=== PATIENT | female | born 1945 | race Caucasian/White ===

== ENCOUNTER → 2018-01-07 | Day surgery (SDC) | payer MEDICARE, OTHER ==
[2017-12-31 16:00] LABS: BASOPHILS # (AUTO) 0.1 (0.0-0.1); BASOPHILS % 0.6 % (0.0-1.0); EOSINOPHILS # (AUTO) 0.1 (0.0-0.4); EOSINOPHILS % 0.8 % (0.0-6.0); HEMATOCRIT 35.6 % (34.2-44.1); HEMOGLOBIN 11.5 g/dL (12.0-16.0); LYMPHOCYTES # (AUTO) 3.7 (1.0-3.2); LYMPHOCYTES % 35.8 % (18.0-39.1); MEAN CORPUSCULAR HEMOGLOBIN 24.8 pg (28-32); MEAN CORPUSCULAR HGB CONC 32.3 g/dL (31-35); MEAN CORPUSCULAR VOLUME 76.9 fL (81-99); MONOCYTES # (AUTO) 0.8 (0.2-0.8); MONOCYTES % 8.1 % (4.4-11.3); NEUTROPHILS # (AUTO) 5.6 (2.1-6.9); NEUTROPHILS % 54.5 % (38.7-80.0); PLATELET COUNT 266 x10e3/uL (140-360); RED BLOOD COUNT 4.63 x10e6/uL (3.6-5.1); RED CELL DISTRIBUTION WIDTH 15.9 % (11.7-14.4)
[~2018-01-07] MED LIST: ASPIRIN81 MG PO; CLIMARA PRO PA1 EACH TD; COMBIGAN EYE DRO5 ML; CRESTOR5 MG PO; DICYCLOMINE HCL20 MG PO; DORZOLAMIDE HCL10 ML OP; FENTANYL CITRATE/PF 100MCG/2 ML INJ ONE; GLIPIZIDE5 MG PO; JANUMET XR 50-1 EAC1 PO; LATANOPROST2.5 ML OP; LEVEMIR 3M100 UNITS/ INJ; LIDOCAINE HCL 2% LOCAL INJ 5 ML SDV VIAL INJ ONE; LISINOPRIL10 MG PO; LUMIGAN2.5 M1 OP; MACROBID 100 M100 MG PO; MICARDIS80 MG PO; MIDAZOLAM HCL 2 MG/2 ML VIAL ONE; NIFEDIPINE ER30 M1 PO; PANTOPRAZOLE SO40 MG PO; PHENYLEPHRINE HCL 1% 10 MG/ML VIAL ONE; PREMARIN TOP; SERTRALINE HCL25 MG PO; TRESIBA SQ; WELCHOL PO
--- OUTSIDE RECORDS SUMMARY | 2018-01-07 09:09 | XMS REPORT | Summary of Care ---
Author Author SCOTT Kay, RAGHAV Organization Unknown Address Unknown Phone Unavailable Care Team Providers Care Heading Saw Operator Name Role Phone AURELIO NIX M.D. Unavailable Unavailable RAGHAV CHAVEZ M.D. Unavailable Unavailable KIERA NGUYEN MD Unavailable Unavailable Unavailable Unavailable Functional Status Name Dates Details Functional status health issues are not documented Status: Name Dates Details Cognitive status health issues are not documented Status: Problems Name Dates Details Glaucoma (365.9, H40.9) Status: Active Depressive disorder (311, F32.9) Status: Active Hypercalcemia (275.42, E83.52) Status: Active Need for immunization against influenza (V04.81, Z23) Status: Active Abnormal finding on thyroid function test (794.5, R94.6) Status: Active Anemia (285.9, D64.9) Status: Active Uncontrolled diabetes mellitus (250.02, E11.65) Status: Active Flu vaccine need (V04.81, Z23) Status: Active Diabetes mellitus (250.00, E11.9) Status: Active Essential (primary) hypertension (401.9, I10) Status: Active Mixed hyperlipidemia (272.2, E78.2) Status: Active Vitamin D deficiency (268.9, E55.9) Status: Active Cataract (366.9, H26.9) Status: Active Sensorineural hearing loss (SNHL) of both ears (389.18, H90.3) Status: Active 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 * Start : 28-Aug-2012 Active [facility] Vitamin D 2000 UNIT CAPS 2 a day * Quantity: 100 Refills: 6 AURELIO NIX M.D. * Start : 28-Aug-2012 Active CoQ10 200 MG Oral Capsule * Refills: 0 AURELIO NIX M.D. * Start : 28-Aug-2012 Active Fish Oil 1000 MG Oral Capsule take 3 a day * Refills: 0 AURELIO NIX M.D. * Start : 28-Aug-2012 Active Sertraline HCl - 25 MG Oral Tablet * Refills: 0 AURELIO NIX M.D. * Start : 28-Aug-2012 Active Janumet 50-1000 MG Oral Tablet Take 1 tablet by mouth twice a day with meals * Quantity: 180 Refills: 0 AURELIO NIX M.D. * Start : 07-Oct-2017 Active Alcohol Swabs Pad 2 a day * Quantity: 200 Refills: 4 AURELIO NIX M.D. * Start : 23-Feb-2013 Active BD Swab Single Use Regular Pad USE 2 A DAY * Quantity: 200 Refills: 4 AURELIO NIX M.D. * Start : 30-Jan-2014 Active OneTouch Ultra Blue In Vitro Strip Check blood glucose two times daily * Quantity: 200 Refills: 1 BOYD Swartz.AURELIO Vivas * Start : 03-Jun-2017 Active Pantoprazole Sodium 40 MG Oral Tablet Delayed Release * Refills: 0 AURELIO NIX M.D. * Start : 30-Jan-2015 Active NIFEdipine ER Osmotic Release 30 MG Oral Tablet Extended Release 24 Hour TAKE 1 TABLET BY MOUTH DAILY * Quantity: 90 Refills: 0 AURELIO NIX M.D. * Start : 23-Oct-2017 Active Lisinopril 20 MG Oral Tablet Take 1 tablet by mouth daily for blood pressure * Quantity: 90 Refills: 0 AURELIO NIX M.D. * Start : 23-Oct-2017 Active Rosuvastatin Calcium 5 MG Oral Tablet Take 1 tablet by mouth at night * Quantity: 90 Refills: 0 AURELIO NIX M.D. * Start : 23-Oct-2017 Active Aspirin 81 MG Oral Tablet Chewable * Refills: 0 BOYD Rahul, AURELIO * Start : 16-Oct-2016 Active Tresiba FlexTouch 200 UNIT/ML Subcutaneous Solution Pen-injector INJECT SUBCUTANEOUSLY 50 UNITS EVERY EVENING ( MAY INCREASE UP TO 60 UNITS ) * Quantity: 3 Refills: 0 BOYD M.D., AURELIO * Start : 07-Oct-2017 Active 3 x 3 ML Pen Allergies and Adverse Reactions Name Dates Details No Known Drug Allergies (Allergy) Status: Active Past Medical History Name Dates Details History of Abnormal finding on thyroid function test (794.5, R94.6) Status: Resolved Procedures Procedure Dates Details History of Hysterectomy Completed History of Tonsillectomy Completed History of cataract surgery Completed History of bladder surgery Completed Immunization Name Dates Details Fluzone INJ Lot #: [id number] on: 16-Aug-2015 Influenza Lot #: [id number] on: 24-Jul-2016 Fluzone High-Dose 0.5 ML Intramuscular Suspension Prefilled Syringe Lot #: [id number] on: 18-Aug-2017 Family History Name Dates Details Family history of Cerebral Artery Occlusion Comments: Family History Status: Active Family history of Diabetes Mellitus (V18.0) Comments: Family History Status: Active Family history of Coronary Artery Disease (V17.49) Comments: Family History Status: Active Name Dates Details Family history of Diabetes Mellitus (V18.0) Status: Active Name Dates Details Family history of Diabetes Mellitus (V18.0) Status: Active Family history of Coronary Artery Disease (V17.49) Status: Active Social History Name Dates Details - Status: Name Dates Details Current every day smoker Former smoker Vital Signs Date Test Result Details :25 BP Systolic 121 mm[Hg] Status: BP Diastolic 76 mm[Hg] Status: Height 67.2 in Status: Weight 182.25 lb Status: Body Mass Index Calculated 28.37 kg/m2 Status: Body Surface Area Calculated 1.95 m2 Status: Temperature 97.6 f Status: Heart Rate 68 /min Status: :54 BP Systolic 136 mm[Hg] Status: BP Diastolic 74 mm[Hg] Status: :44 BP Systolic 114 mm[Hg] Status: Comments: Location: LUE; Position: Sitting BP Diastolic 72 mm[Hg] Status: Comments: Location: LUE; Position: Sitting Height 66 in Status: Weight 182.0625 lb Status: Body Mass Index Calculated 29.39 kg/m2 Status: Body Surface Area Calculated 1.92 m2 Status: Heart Rate 71 /min Status: Results Date Description Value Details :45 [O] Hemoglobin A1c (in office) HEMOGLOBIN A1c 6.8 :45 [O] Lipid Panel (In Office) CHOLESTEROL, TOTAL 104 HDL CHOLESTEROL 45 TRIGLYCERIDES 132 LDL-CHOLESTEROL 32 NON HDL CHOLESTEROL 59 T. Chol/HDL Ratio 2.3 GLUCOSE 119 [id number] Glucose (Point of Care In Office) Glucose POC Lifescan 133 [id number] [QL] CMP W/EGFR Sodium Level 138 {mEq/l} Range: 135-145 Potassium Level 4.0 {mEq/l} Range: 3.5-5.1 Chloride Level 101 {mEq/l} Range: 95-109 Carbon Dioxide 27 {mEq/l} Range: 24-32 AGAP 14.0 {mEq/l} Range: 10.0-20.0 Glucose Lvl 114 mg/dl (Above high threshold) Range: 70-99 Comments: Adult reference range values reflect the clinical guidelinesof the [place] [employer]. Creatinine Lvl 1.10 mg/dl Range: 0.50-1.40 Blood Urea Nitrogen 19 mg/dl Range: 7-22 BUN/Creatinine Ratio 17 Range: 6-25 Total Protein 7.4 g/dl Range: 6.4-8.4 Albumin Lvl 3.7 g/dl Range: 3.5-5.0 Globulin 3.7 g/dl Range: 2.7-4.2 A/G Ratio 1.0 Range: 0.7-1.6 Calcium Level Total 9.7 mg/dl Range: 8.5-10.5 ALT 21 u/l Range: 0-65 AST 13 u/l Range: 0-37 Alk Phos 79 u/l Range: 39-136 Bili Total 0.3 mg/dl Range: 0.2-1.3 eGFR 50 {ML/MIN/1.7} Comments: The eGFR is calculated using the CKD-EPI formula. In most young, healthyindividuals the eGFR will be >90 mL/min/1.73m2. The eGFR declines with age. AneGFR of 60-89 may be normal in some populations, particularly the elderly, forwhom the CKD-EPI formula has not been extensively validated. Use of the eGFR isnot recommended in the following populations: Individuals with unstable creatinine concentrations, including patients and those with serious co-morbid conditions.Patients with extremes in muscle mass or diet.The data above are obtained from the National Kidney Disease Education Program(NKDEP) which additionally recommends that when the eGFR is used in patientswith extremes of body mass index for purposes of drug dosing, the eGFR shouldbe multiplied by the estimated BMI. : [[facility]] T4, FREE T4 Free 1.02 ng/dl Range: 0.76-1.46 : [[facility]] TSH, 3RD GENERATION TSH 3.840 {uIU/ml} (Above high threshold) Range: 0.360-3.740 : [[facility]] MICROALBUMIN, RANDOM URINE (W/CREATININE) Urine Microalbumin 5.9 mg/L U Creatinine 50.00 mg/dl Comments: No established reference ranges. Urine Microalbuming Creatinine Ratio 11.8 {MCG/MG_CRE} Range: <=30.0 Plan of Care Name Dates Details Planned Observations Planned Goals not documented Planned Encounters Appointment; ADELE MOON On: 08-Feb-2018 11:00 Appointment; AURELIO NIX M.D. On: 25-Mar-2018 10:00 Interventions Provided Plan* 72 yo F with bilateral sensorineural hearing loss, SDB * - medically cleared for hearing aids * - PSG * - RTC after PSG Instructions Name Dates Details Instructions not documented Encounters Appointment; AURELIO NIX M.D. Encounter Diagnosis: Problem not documented On: 11-Mar-2016 10:30 Appointment; AURELIO NIX M.D. Encounter Diagnosis: Problem not documented On: 24-Jul-2016 9:00 Appointment; AURELIO NIX M.D. Encounter Diagnosis: Problem not documented On: 16-Oct-2016 9:30 Appointment; AURELIO NIX M.D. Encounter Diagnosis: Problem not documented On: 22-Jan-2017 9:00 Appointment; [address]ILDA [address] Encounter Diagnosis: Problem not documented On: 24-Feb-2017 10:00 Appointment; AURELIO NIX M.D. Encounter Diagnosis: Problem not documented On: 09-Apr-2017 12:00 Appointment; AURELIO NIX M.D. Encounter Diagnosis: Problem not documented On: 18-Aug-2017 8:30 Appointment; AURELIO NIX M.D. Encounter Diagnosis: Problem not documented On: 15-Dec-2017 10:30 Appointment; RAGHAV CHAVEZ M.D. Encounter Diagnosis: Problem not documented On: 30-Dec-2017 9:00
--- NOTE | 2018-01-07 13:35 | Operative Report ---
DATE OF PROCEDURE: January 07, 2018 PROCEDURES PERFORMED 1. Esophagogastroduodenoscopy and biopsies. 2. Colonoscopy with polypectomy and biopsies. INDICATIONS FOR EGD: Upper abdominal pain, heartburn, indigestion. INDICATIONS FOR COLONOSCOPY: Colorectal cancer screening. Personal history of colon polyps, diarrhea. MEDICATION: Patient was done under MAC. Please see anesthesiologist's note. PROCEDURE: With the patient in the left lateral decubitus position, the flexible fiberoptic Olympus gastroscope was introduced into the esophagus under direct visualization without any difficulty. There was some patchy erythema noted in the distal esophagus. A minute tongue of velvety red mucosa was noted to extend proximally from the GE junction. That was biopsied to rule out Banks's. The scope was then advanced with ease into the stomach, and the mucosa overlying the antrum and the body revealed some patchy erythema and low-grade to moderate edema. Biopsies were obtained and sent to stain for H. pylori. Hyperplastic-appearing polyps were noted in the body of the stomach, and some were partially excised with cold biopsy forceps. Pylorus appeared to be of normal contour and shape. It was intubated with ease, and the scope was advanced all the way to the 2nd portion of the duodenum. The scope was then withdrawn slowly. Mucosa overlying the proximal 2nd portion grossly appeared to be within normal limits. Biopsies were obtained to rule out sprue. Mucosa overlying the duodenal bulb appeared to be within normal limits. The scope was then withdrawn back into the stomach and retroflexed. The mucosa overlying the fundus and the cardia appeared to be within normal limits. The scope was then straightened out. The stomach was decompressed. Scope was subsequently withdrawn. Patient tolerated the procedure well. IMPRESSION 1. Distal esophagitis. 2. Rule out Banks's esophagus. 3. Gastritis, biopsied. Biopsies sent to stain for H. pylori. 4. Gastric polyps, some partially excised with cold biopsy forceps. 5. Rule out sprue. PLAN: Follow up histology. Continue Protonix 40 mg 1 p.o. a.c. b.i.d. and start Carafate 2 g p.o. a.c. b.i.d. The patient was then turned around. The flexible fiberoptic Olympus colonoscope was inserted into the rectum with ease and advanced all the way to the cecum. The ileocecal valve appeared to be within normal limits. The ileocecal valve was intubated, and the scope was advanced into the terminal ileum. Biopsies were obtained. The scope was then withdrawn back into the colon. It was then withdrawn slowly, and the mucosa overlying the ascending and the transverse appeared to be within normal limits. Mucosa overlying the left colon revealed some patchy, mild, inflammatory changes and multiple random biopsies were obtained. One polyp was hot biopsied from the descending colon. One polyp was hot biopsied from the sigmoid colon. Some minimal diverticular disease was noted in the sigmoid colon. The scope was then retroflexed into the distal rectum, and small internal hemorrhoids were noted, none of which was actively bleeding. The scope was then straightened out. It was subsequently withdrawn after securing an adequate stool specimen that was sent for the appropriate stool studies. Patient tolerated the procedure well. IMPRESSION 1. Patchy mild colitis, left colon. Random biopsies obtained. 2. Descending colon polyp, hot biopsied. 3. Diverticulosis. 4. Sigmoid colon polyp, hot biopsied. 5. Internal hemorrhoids, none actively bleeding. PLAN: Follow up histology. Follow up stool studies. Initiate VSL #3 DS 1 p.o. daily and Bentyl 20 mg 1 p.o. t.i.d. Patient will need a followup colonoscopy in 3 years. Job#: [id number]
[2018-01-07 15:10] LABS: C DIFFICILE TOXIN A&B AMP PROB NEGATIVE (NEGATIVE); WBC,FECAL (FECAL LACTOFERRIN) NEGATIVE (NEGATIVE)
== END | disposition home or self-care (01) ==
LOC: OR 09:07
PROVIDERS: ATTEND Internal Medicine Gastroenterology
DX: K52.89 Other specified noninfective gastroenteritis and colitis (principal); K63.5 Polyp of colon; K31.7 Polyp of stomach and duodenum; K29.70 Gastritis, unspecified, without bleeding; K20.9 Esophagitis, unspecified; K21.9 Gastro-esophageal reflux disease without esophagitis; K57.30 Diverticulosis of large intestine without perforation or abscess without bleeding; K64.8 Other hemorrhoids; I10 Essential (primary) hypertension; E11.9 Type 2 diabetes mellitus without complications; H40.9 Unspecified glaucoma; R05 Cough; T78.40XA Allergy, unspecified, initial encounter; E78.5 Hyperlipidemia, unspecified; F32.9 Major depressive disorder, single episode, unspecified; F41.9 Anxiety disorder, unspecified; X58.XXXA Exposure to other specified factors, initial encounter; Z01.810 Encounter for preprocedural cardiovascular examination; Z01.812 Encounter for preprocedural laboratory examination; Z68.30 Body mass index [BMI] 30.0-30.9, adult
CPT/HCPCS: 36415 ×2; 43239; 45380; 45384; 82948; 83630; 83993; 85025; 87045; 87177; 87328; 87493; 93005; J2001; J2250; J2370

== ENCOUNTER → 2021-05-02 | Day surgery (SDC) | payer MEDICARE ==
[2021-04-30 11:08] LABS: BASOPHILS # (AUTO) 0.1 (0.0-0.1); BASOPHILS % 1.1 % (0.0-1.0); EOSINOPHILS # (AUTO) 0.2 (0.0-0.4); EOSINOPHILS % 1.9 % (0.0-6.0); HEMATOCRIT 41.4 % (34.2-44.1); HEMOGLOBIN 13.1 g/dL (12.0-16.0); LYMPHOCYTES # (AUTO) 3.1 (1.0-3.2); LYMPHOCYTES % 29.7 % (18.0-39.1); MEAN CORPUSCULAR HEMOGLOBIN 27.5 pg (28-32); MEAN CORPUSCULAR HGB CONC 31.6 g/dL (31-35); MEAN CORPUSCULAR VOLUME 86.8 fL (81-99); MONOCYTES # (AUTO) 0.8 (0.2-0.8); MONOCYTES % 7.7 % (4.4-11.3); NEUTROPHILS # (AUTO) 6.1 (2.1-6.9); PLATELET COUNT 286 x10e3/uL (140-360); RED BLOOD COUNT 4.77 x10e6/uL (3.6-5.1); RED CELL DISTRIBUTION WIDTH 14.5 % (11.7-14.4)
[~2021-05-02] MED LIST changes: +BETIMOL5 M1 OU; +CALCIUM CARBON500 MG PO; -FENTANYL CITRATE/PF 100MCG/2 ML INJ ONE; +HUMALOG100 UNIT/1 SQ; +HYOSCYAMINE SULFATE 0.5 MG/ML INJ ONE; +LATANOPROST2.5 ML OU; -MIDAZOLAM HCL 2 MG/2 ML VIAL ONE; +MSM500 MG PO; +MULTI-VITAMIN1 EACH PO; -PHENYLEPHRINE HCL 1% 10 MG/ML VIAL ONE; +PROBIOTIC & AC1 EACH PO; +PROPOFOL IV EMULSION 10 MG/ML 20 ML VIAL ONE; +ULTRA FLORA PL1 EACH PO; +VITAMIN B COMP1 EACH PO; +VITAMIN C500 M2 PO; +VITAMIN D3250 MCG PO; +[UNRECOGNIZED DRUG - OTHER] PO
[2021-05-02 09:56] VITALS: BP 136/66
== END | disposition home or self-care (01) ==
LOC: OR 06:32
PROVIDERS: ATTEND Internal Medicine Gastroenterology
DX: K22.70 Barrett's esophagus without dysplasia (principal); Z86.010 Personal history of colon polyps; K31.7 Polyp of stomach and duodenum; K29.50 Unspecified chronic gastritis without bleeding; K58.9 Irritable bowel syndrome, unspecified; K59.00 Constipation, unspecified; K20.90 Esophagitis, unspecified without bleeding; K57.30 Diverticulosis of large intestine without perforation or abscess without bleeding; K64.8 Other hemorrhoids; G47.33 Obstructive sleep apnea (adult) (pediatric); I10 Essential (primary) hypertension; E11.9 Type 2 diabetes mellitus without complications; E78.00 Pure hypercholesterolemia, unspecified; H40.9 Unspecified glaucoma; F32.9 Major depressive disorder, single episode, unspecified; Z01.810 Encounter for preprocedural cardiovascular examination; Z01.812 Encounter for preprocedural laboratory examination; Z79.82 Long term (current) use of aspirin; Z79.4 Long term (current) use of insulin; Z68.30 Body mass index [BMI] 30.0-30.9, adult
CPT/HCPCS: 36415 ×2; 43239; 45378; 82948; 85025; 93005; J1980; J2001; J2704

== ENCOUNTER → 2025-07-13 | Day surgery (SDC) | payer MEDICARE ==
[2025-07-11 14:08] LABS: BASOPHILS % 0.8 % (0.0-1.0); EOSINOPHILS % 0.8 % (0.0-6.0); LYMPHOCYTES % 29.3 % (18.0-39.1); MONOCYTES % 9.5 % (4.4-11.3); NEUTROPHILS % 59.5 % (38.7-80.0); RED CELL DISTRIBUTION WIDTH 14.6 % (11.7-14.4)
[~2025-07-13] MED LIST changes: -HYOSCYAMINE SULFATE 0.5 MG/ML INJ ONE; +KEFLEX125 MG/5 M PO; +METOCLOPRAMIDE HCL 10 MG/2ML VIAL ONE; +OZEMPIC1 MG/0.71
[2025-07-13] MEDS: LACTATED RINGER'S 1,000 ML ONE (12:24)
[2025-07-13 13:34] VITALS: TEMP 97.2
[2025-07-13 14:05] VITALS: BP 129/76; PULSE 75; RESP 16; O2SAT 97
== END | disposition home or self-care (01) ==
LOC: OR 09:55
PROVIDERS: ATTEND Internal Medicine Gastroenterology
DX: K22.70 Barrett's esophagus without dysplasia (principal); K31.7 Polyp of stomach and duodenum; K29.70 Gastritis, unspecified, without bleeding; K20.90 Esophagitis, unspecified without bleeding; K21.9 Gastro-esophageal reflux disease without esophagitis; K44.9 Diaphragmatic hernia without obstruction or gangrene; E11.9 Type 2 diabetes mellitus without complications; I10 Essential (primary) hypertension; Z71.89 Other specified counseling; E78.5 Hyperlipidemia, unspecified; H40.9 Unspecified glaucoma; F32.A Depression, unspecified; Z01.810 Encounter for preprocedural cardiovascular examination; Z01.812 Encounter for preprocedural laboratory examination; Z79.84 Long term (current) use of oral hypoglycemic drugs; Z79.85 Long-term (current) use of injectable non-insulin antidiabetic drugs; Z79.4 Long term (current) use of insulin; Z79.82 Long term (current) use of aspirin; Z79.899 Other long term (current) drug therapy; Z68.31 Body mass index [BMI] 31.0-31.9, adult; Z71.3 Dietary counseling and surveillance; Z91.81 History of falling
CPT/HCPCS: 36415 ×2; 43239; 43251; 82948; 85025; 93005; J2003; J2470; J2704; J2765; J7121